=== PATIENT | female | born 1970 | race Caucasian/White ===

== ENCOUNTER 2018-12-09 22:57 | Emergency (ER) | payer SELFPAY ==
[~2018-12-09] VITALS: Ht 157.5 cm; Wt 57.2 kg
[2018-12-09 22:58] VITALS: Ht 157.5 cm; Wt 57.2 kg
[2018-12-10] MEDS ORDERED: morphine 4 MG/ML VIAL IV STA (00:19)
[2018-12-10] MEDS ORDERED: SOD CHLORIDE 0.9% 500 ML IV STA (00:19)
[2018-12-10] MEDS ORDERED: ONDANSETRON 4 MG INJ IV STA (00:19)
[2018-12-10] MEDS ORDERED: IBUP200C11 PO (01:37)
[2018-12-10] MEDS ORDERED: DOCU-144 PO (04:16)
[2018-12-10] MEDS ORDERED: TRAM50TA2 PO (04:16)
[2018-12-10 04:47] VITALS: BP 101/60; PULSE 74; RESP 16
--- NOTE | 2018-12-22 01:02 | ERD ---
ER Documentation Chief Complaint Chief Complaint LLQ- ABD PAIN X3DAYS; NO N/V/D/C HPI This is a very pleasant 48-year-old complains of "abdominal pain for 3 days. No nausea no vomiting no diarrhea no chills. No fever. Pain is mild to moderate intensity no exacerbating relieving factors. Denies any trauma. Denies any recent travel. Denies any sick contacts. ROS All systems reviewed and are negative except as per history of present illness. Medications Home Meds Active Scripts Tramadol HCl (Tramadol HCl) 50 Mg Tablet, 50 MG PO Q4 PRN for PAIN, #20 TAB Prov:KIRANYAELROSITA Guicho 12/10/18 Docusate Sodium* (Colace*) 100 Mg Capsule, 100 MG PO TID, #30 CAP Prov:KIRANYAELROSITA Guicho 12/10/18 Reported Medications Ibuprofen* (Advil*) 200 Mg Capsule, 200 MG PO Q6H PRN for PAIN, CAP 12/10/18 Allergies Allergies: Coded Allergies: No Known Allergy (Unverified , 12/10/18) PMhx/Soc Medical and Surgical Hx: pt denies Medical Hx, pt denies Surgical Hx Hx Alcohol Use: No Hx Substance Use: No Hx Tobacco Use: No Smoking Status: Never smoker Physical Exam Physical Exam Const: No acute distress Head: Atraumatic Eyes: Normal Conjunctiva ENT: Normal External Ears, Nose and Mouth. Neck: Full range of motion. No meningismus. Resp: Clear to auscultation bilaterally Cardio: Regular rate and rhythm, no murmurs Abd: Soft, non tender, non distended. Normal bowel sounds Skin: No petechiae or rashes Back: No midline or flank tenderness Ext: No cyanosis, or edema Neur: Awake and alert Psych: Normal Mood and Affect Results 24 hrs Laboratory Tests Test 12/10/18 00:52 White Blood Count 14.0 10^3/ul Red Blood Count 4.45 10^6/ul Hemoglobin 13.4 g/dl Hematocrit 39.8 % Mean Corpuscular Volume 89.4 fl Mean Corpuscular Hemoglobin 30.1 pg Mean Corpuscular Hemoglobin Concent 33.7 g/dl Red Cell Distribution Width 13.0 % Platelet Count 328 10^3/UL Mean Platelet Volume 9.2 fl Immature Granulocytes % 0.400 % Neutrophils % 59.8 % Lymphocytes % 16.5 % Monocytes % 5.0 % Eosinophils % 17.6 % Basophils % 0.7 % Nucleated Red Blood Cells % 0.0 /100WBC Immature Granulocytes # 0.060 10^3/ul Neutrophils # 8.4 10^3/ul Lymphocytes # 2.3 10^3/ul Monocytes # 0.7 10^3/ul Eosinophils # 2.5 10^3/ul Basophils # 0.1 10^3/ul Nucleated Red Blood Cells # 0.0 10^3/ul Urine Color YELLOW Urine Clarity CLEAR Urine pH 7.0 Urine Specific Kouts 1.010 Urine Ketones NEGATIVE mg/dL Urine Nitrite NEGATIVE mg/dL Urine Bilirubin NEGATIVE mg/dL Urine Urobilinogen NEGATIVE mg/dL Urine Leukocyte Esterase NEGATIVE Joseluis/ul Urine Hemoglobin NEGATIVE mg/dL Urine Glucose NEGATIVE mg/dL Urine Total Protein NEGATIVE mg/dl Sodium Level 140 mmol/L Potassium Level 3.5 mmol/L Chloride Level 104 mmol/L Carbon Dioxide Level 26 mmol/L Anion Gap 10 Blood Urea Nitrogen 10 mg/dl Creatinine 0.58 mg/dl Est Glomerular Filtrat Rate mL/min > 60 mL/min Glucose Level 105 mg/dl Calcium Level 9.5 mg/dl Total Bilirubin 0.2 mg/dl Direct Bilirubin 0.00 mg/dl Indirect Bilirubin 0.2 mg/dl Aspartate Amino Transf (AST/SGOT) 18 IU/L Alanine Aminotransferase (ALT/SGPT) 15 IU/L Alkaline Phosphatase 82 IU/L Total Protein 7.9 g/dl Albumin 4.6 g/dl Globulin 3.30 g/dl Albumin/Globulin Ratio 1.39 Lipase 39 U/L Current Medications Medications Dose Sig/Jayleen Start Time Status Last (Trade) Ordered Route PRN Stop Time Admin Dose Reason Admin Sodium 500 ml @ Q1H STAT 12/10/18 DC 12/10/18 Chloride 500 mls/hr IV 00:19 01:13 12/10/18 01:18 Morphine 4 mg ONCE STAT 12/10/18 DC 12/10/18 Sulfate IV 00:19 01:13 (morphine) 12/10/18 00:20 Ondansetron 4 mg ONCE STAT 12/10/18 DC 12/10/18 HCl (Zofran IV 00:19 01:13 Inj) 12/10/18 00:20 Procedures/MDM Medical decision making: This 48-year female essentially has constipation on CT. She has serial negative examinations and has a nonsurgical abdomen. Patient's gastrointestinal symptoms have stabilized while in the department. No evidence of severe dehydration, sepsis, or surgical abdomen. Extensive discussion with family and patient that occult disease cannot be ruled out. 8 hour recheck for repeat abdominal exam is planned. Departure Diagnosis: Primary Impression: Abdominal pain Abdominal location: unspecified location Qualified Codes: R10.9 - Unspecified abdominal pain Condition: Stable Patient Instructions: Abdominal Pain ROSITA CRUZ Dec 22, 2018 01:02
== END 2018-12-10 04:55 | disposition home or self-care (01) ==
LOC: E/R 22:57
DX: R10.32 Left lower quadrant pain (principal)
CPT/HCPCS: 74176; 80053; 81003; 83690; 85025; J2270; J2405; J7040; 36415; 96361; 96374